=== PATIENT | female | born 2000 | race American Indian/Alaskan Native ===

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

== ENCOUNTER 2021-02-02 13:15 | Emergency (ER) | payer SELFPAY ==
[2021-02-02 14:49] VITALS: BP 126/85
== END 2021-02-02 19:00 | disposition left against medical advice (07) ==
LOC: ED 13:15
DX: N93.9 Abnormal uterine and vaginal bleeding, unspecified (principal); Z53.21 Procedure and treatment not carried out due to patient leaving prior to being seen by health care provider

== ENCOUNTER 2021-03-05 17:19 | Emergency (ER) | payer SELFPAY ==
[2021-03-05] MEDS ORDERED: KETOROLAC 30 MG/1 ML INJ IV ONE (18:00)
[2021-03-05] MEDS ORDERED: methylPREDNISolone Sod Succinate 125 MG/2 ML INJ IV ONE (18:00)
[2021-03-05] MEDS ORDERED: diphenhydrAMINE 50 MG/ML VIAL IV ONE (18:00)
[2021-03-05] MEDS ORDERED: FAMOTIDINE 20 MG/2 ML INJ IV ONE (18:00)
--- NOTE | 2021-03-05 18:01 | Emergency Department Report ---
ED General Adult HPI - General Chief complaint: Allergic Reaction Stated complaint: Allergic reaction, chest wall pain PUI?: No Time Seen by Provider: 03/05/21 17:40 Source: patient, RN notes reviewed Mode of arrival: Ambulatory Limitations: No Limitations - History of Present Illness Initial comments: The patient was evaluated in the emergency department for symptoms described in the history of present illness. He/she was evaluated in the context of the global COVID-19 pandemic, which necessitated consideration that the patient might be at risk for infection with the virus that causes COVID-19. Institutional protocols and algorithms that pertain to the evaluation of patients at risk for COVID-19 are in a state of rapid change based on information released by regulatory bodies including the CDC and federal and state organizations. These policies and algorithms were followed during the patient's care in the emergency department. Please note that these policies, procedures and recommendations changed on a rapid basis. During the history and physical examination, I am chaperoned by gisele Malcolm The patient is a 20-year-old female. She is not known to myself previously. She states that she is not . She denies chronic medical conditions. She presents to the ER today with a complaint of skin rash, skin swelling, chest wall pain, pruritus, after being bit on her head by an unknown presumed insect. The symptoms have just started within the past hour. Prior to the reported bite, the patient states that she was in her usual state of health. She denies travel, surgery, immobilization, leg pain or leg swelling, personal and family history of DVT, pulmonary embolism risk factors, and her chest wall pain is constant, throbbing, does not radiate anywhere, increases with palpation and decreases with rest. She complains of diffuse skin itching and pruritus. No dysphonia. Has taken Tylenol at home for her chest wall pain. -: Sudden Location: head, face, mouth, chest, back, abdomen, left, right, upper extremity, lower extremity Quality: other (Pruritic, and aching) Consistency: constant Improves with: none Worsens with: other (Chest wall pain increases with palpation) - Related Data Previous Rx's Medication Instructions Recorded Last Taken Type Ibuprofen 600 mg PO Q8H PRN #15 tablet 10/03/17 Unknown Rx Acyclovir 400 mg PO Q8H #30 tablet 07/19/19 Unknown Rx Acyclovir [Acyclovir Ointment] 30 gm TP Q6H #1 tube 07/19/19 Unknown Rx Ibuprofen [Motrin] 800 mg PO Q8HR PRN #24 tablet 07/19/19 Unknown Rx Acetaminophen [Non-Aspirin Extra 500 mg PO Q6HR PRN #30 tablet 03/05/21 Unknown Rx Strength] Albuterol Sulfate [Proair 90 mcg IH Q4HR PRN #2 aer.pow.ba 03/05/21 Unknown Rx Respiclick] EPINEPHrine [Epipen 2-He] 0.3 mg IM DAILY PRN #2 ml 03/05/21 Unknown Rx Famotidine [Pepcid] 20 mg PO BID #10 tablet 03/05/21 Unknown Rx Ibuprofen [Motrin] 600 mg PO Q8H PRN #30 tablet 03/05/21 Unknown Rx diphenhydrAMINE [Benadryl] 50 mg PO Q8HR PRN #20 capsule 03/05/21 Unknown Rx predniSONE [Deltasone] 40 mg PO QDAY #8 tab 03/05/21 Unknown Rx Allergies Allergy/AdvReac Type Severity Reaction Status Date / Time No Known Allergies Allergy Verified 03/05/21 18:39 ED Review of Systems ROS: Stated complaint: SEIZER BY INSECT BITE Other details as noted in HPI Constitutional: denies: fever Eyes: denies: eye discharge ENT: denies: throat pain, epistaxis, congestion Respiratory: shortness of breath. denies: cough Cardiovascular: chest pain (Chest wall pain) Gastrointestinal: denies: abdominal pain, nausea, vomiting Musculoskeletal: myalgia Skin: rash, lesions, pruritus Psychiatric: anxiety ED Past Medical Hx - Past Medical History Hx Asthma: Yes - Social History Smoking Status: Never Smoker Substance Use Type: Alcohol - Medications Home Medications: Home Medications Medication Instructions Recorded Confirmed Last Taken Type Ibuprofen 600 mg PO Q8H PRN #15 tablet 10/03/17 Unknown Rx Acyclovir 400 mg PO Q8H #30 tablet 07/19/19 Unknown Rx Acyclovir [Acyclovir Ointment] 30 gm TP Q6H #1 tube 07/19/19 Unknown Rx Ibuprofen [Motrin] 800 mg PO Q8HR PRN #24 tablet 07/19/19 Unknown Rx Acetaminophen [Non-Aspirin Extra 500 mg PO Q6HR PRN #30 tablet 03/05/21 Unknown Rx Strength] Albuterol Sulfate [Proair 90 mcg IH Q4HR PRN #2 aer.pow.ba 03/05/21 Unknown Rx Respiclick] EPINEPHrine [Epipen 2-He] 0.3 mg IM DAILY PRN #2 ml 03/05/21 Unknown Rx Famotidine [Pepcid] 20 mg PO BID #10 tablet 03/05/21 Unknown Rx Ibuprofen [Motrin] 600 mg PO Q8H PRN #30 tablet 03/05/21 Unknown Rx diphenhydrAMINE [Benadryl] 50 mg PO Q8HR PRN #20 capsule 03/05/21 Unknown Rx predniSONE [Deltasone] 40 mg PO QDAY #8 tab 03/05/21 Unknown Rx ED Physical Exam - General Limitations: No Limitations General appearance: alert, anxious, obese - Head Head exam: Present: atraumatic, normocephalic - Eye Eye exam: Present: normal appearance, EOMI - ENT ENT exam: Present: normal exam, normal orophraynx, mucous membranes moist, normal external ear exam - Neck Neck exam: Present: normal inspection, full ROM. Absent: tenderness, meningismus - Respiratory Respiratory exam: Present: normal lung sounds bilaterally, chest wall tenderness. Absent: respiratory distress, wheezes, rales, rhonchi, stridor - Cardiovascular Cardiovascular Exam: Present: regular rate, normal rhythm, normal heart sounds. Absent: bradycardia, tachycardia, irregular rhythm, systolic murmur, diastolic murmur, rubs, gallop - GI/Abdominal GI/Abdominal exam: Present: soft. Absent: distended, tenderness, guarding, rebound, rigid, pulsatile mass - Extremities Exam Extremities exam: Present: normal inspection, full ROM, other (2+ pulses noted in the bilateral upper and lower extremities. There is no palpable cord. negative Homans sign. Muscular compartments are soft. The pelvis is stable.). Absent: pedal edema, calf tenderness - Back Exam Back exam: Present: normal inspection - Neurological Exam Neurological exam: Present: alert, oriented X3, other (No facial droop. Tongue midline. Extraocular movements intact bilaterally. Facial sensation intact to light touch in V1, V2, V3 distribution bilaterally. 5 and a 5 strength in 4 extremities. Sensation intact to light touch in 4 extremities.). Absent: motor sensory deficit - Psychiatric Psychiatric exam: Present: anxious - Skin Skin exam: Present: warm, rash, urticaria ED Course Vital Signs 03/05/21 03/05/21 03/05/21 17:32 17:46 18:00 Temperature 98.3 F Pulse Rate 118 H Respiratory 56 H 30 H Rate Blood Pressure 131/77 131/77 O2 Sat by Pulse 100 100 98 Oximetry 03/05/21 03/05/21 18:16 18:30 Temperature Pulse Rate 80 81 Respiratory 20 15 Rate Blood Pressure 132/87 132/87 O2 Sat by Pulse 100 100 Oximetry ED Medical Decision Making - Lab Data Vital Signs 03/05/21 03/05/21 03/05/21 17:32 17:46 18:00 Temperature 98.3 F Pulse Rate 118 H Respiratory 56 H 30 H Rate Blood Pressure 131/77 131/77 O2 Sat by Pulse 100 100 98 Oximetry 03/05/21 03/05/21 18:16 18:30 Temperature Pulse Rate 80 81 Respiratory 20 15 Rate Blood Pressure 132/87 132/87 O2 Sat by Pulse 100 100 Oximetry - EKG Data -: EKG Interpreted by Wy EKG shows normal: sinus rhythm Rate: normal - EKG Data When compared to previous EKG there are: previous EKG unavailable 03/05/21 21:09 EKG interpreted at 18: 10 Sinus rhythm, 69 bpm, normal axis, normal intervals, high left ventricular voltage, not a STEMI. - Radiology Data Radiology results: pending, report reviewed, image reviewed [facility] [address] [place] [address] XRay Report Signed Patient: HECTOR GUERRERO MR#: [id number] : 2000 Acct:[id number] Age/Sex: 20 / F ADM Date: 03/05/21 Loc: ED Attending Dr: Ordering Physician: DEVON TONEY MD Date of Service: 03/05/21 Procedure(s): XR chest 1V ap Accession Number(s): [id number] cc: DEVON TONEY MD Fluoro Time In Minutes: CHEST 1 VIEW INDICATION: chest wall pain. COMPARISON: None. FINDINGS: Support devices: None. Heart: Normal. Lungs/Pleura: No acute pulmonary or pleural findings. IMPRESSION: 1. No acute findings. Signer Name: Joel Rain MD Signed: 03/05/2021 6:32 PM Workstation Name: [id number] Transcribed By: TOYA Dictated By: Joel Rain MD Electronically Authenticated By: Joel Rain MD Signed Date/Time: 03/05/211831 DD/ 31 - Medical Decision Making Differential diagnosis, including not limited to: Allergic reaction, insect bite, costochondritis Assessment and plan: 20-year-old female presenting with reproducible chest wall pain,/tenderness, in the context of rapid breathing, after uncertain bite from insect and/or arthropod, likely causing allergic reaction. Initially, she had urticaria, and complained of pruritus. She was given Toradol, steroids, Pepcid and Benadryl. All of this resolved her symptoms. At the moment, she is resting comfortably in stretcher, sleeping, and in no acute distress. She states that she is not . She denies DVT and pulmonary embolism risk factors, and she is low risk by Wells criteria. She denies personal/family history of DVT, PE, and coronary artery disease. This is most likely costochondritis with with resolved allergic reaction. Patient counseled that she may expect rebound symptoms. She states she has no questions at this time. She states she is ready for discharge at this time. All questions answered. Critical care attestation.: If time is entered above; I have spent that time in minutes in the direct care of this critically ill patient, excluding procedure time. ED Disposition Clinical Impression: Allergic reaction, Costochondritis Disposition: DC-01 TO HOME OR SELFCARE Is pt being admited?: No Does the pt Need Aspirin: No Condition: Stable Instructions: Costochondritis, [id number], Allergies, Adult, [id number] Additional Instructions: Take the pain medication as needed and directed. Please note that the patient should follow-up with a primary care doctor or neurology specialist within the next 2 to 3 weeks for dedicated skin testing, to ascertain what specifically the patient may be allergic to. Symptoms of allergy may rebound and recur within 72 hours of the initial insult. Therefore, please take the steroids/prednisone as directed, Benadryl as needed/directed, Pepcid as directed, breathing treatment as needed and/or directed. Use the epinephrine pen only if patient develops inability to speak and inability to breathe. Please return to the emergency room right away with new pain, worsened pain, migration of pain, projectile vomiting, change in mental status, confusion, inability tolerate liquid feeds, and ability to speak or breathe currently new, worsened or different symptoms not present on initial emergency room evaluation. Prescriptions: diphenhydrAMINE [Benadryl] 50 mg PO Q8HR PRN #20 capsule PRN Reason: Allergic Reaction predniSONE [Deltasone] 40 mg PO QDAY #8 tab EPINEPHrine [Epipen 2-He] 0.3 mg IM DAILY PRN #2 ml PRN Reason: Allergic Reaction Ibuprofen [Motrin] 600 mg PO Q8H PRN #30 tablet PRN Reason: Pain Acetaminophen [Non-Aspirin Extra Strength] 500 mg PO Q6HR PRN #30 tablet PRN Reason: Pain , Severe (7-10) Famotidine [Pepcid] 20 mg PO BID #10 tablet Albuterol Sulfate [Proair Respiclick] 90 mcg IH Q4HR PRN #2 aer.pow.ba PRN Reason: Wheezing Referrals: PRIMARY CARE, [Primary Care Provider] - 3-5 Days [facility] [Provider Group] - 3-5 Days Forms: Work/School Release Form(ED)
--- NOTE | 2021-03-05 18:37 | XRay Report ---
CHEST 1 VIEW INDICATION: chest wall pain. COMPARISON: None. FINDINGS: Support devices: None. Heart: Normal. Lungs/Pleura: No acute pulmonary or pleural findings. IMPRESSION: 1. No acute findings. Signer Name: Joel Rain MD Signed: 03/05/2021 6:32 PM Workstation Name: [id number]
[2021-03-05 21:39] VITALS: BP 116/70
--- NOTE | 2021-03-06 10:39 | Electrocardiograph Report ---
[facility] Test Date: 2021-03-05 Test Time: 18:07:49 Pat Name: HECTOR GUERRERO Department: Room: Gender: F Activity Manager: NURSE : 2000 Requested By: DEVON TONEY Order Number: [id number] Reading MD: Eldon Hawk Measurements Intervals [place] Rate: 69 P: 57 KS: 138 QRS: 77 QRSD: 69 T: 70 QT: 371 QTc: 396 Interpretive Statements Sinus rhythm No previous ECG available for comparison Electronically Signed On 03-06-2021 10:39:24 EDT by Eldon Hawk
== END 2021-03-05 22:46 | disposition home or self-care (01) ==
LOC: ED 17:19
DX: T78.40XA Allergy, unspecified, initial encounter (principal); M94.0 Chondrocostal junction syndrome [Tietze]; X58.XXXA Exposure to other specified factors, initial encounter
CPT/HCPCS: 71045; 93005; 96374; 96375; 99283; J1200; J1885; J2930

== ENCOUNTER 2021-09-16 03:33 | Emergency (ER) | payer SELFPAY ==
[2021-09-16] MEDS ORDERED: LACTATED RINGERS 1,000 ML IV ONE (03:35)
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
[2021-09-16 04:24] LABS: Hematocrit 43.6 % (30.3-42.9); Mean Corpuscular HGB Conc 32 % (30-34); Mean Corpuscular Volume 83 fl (79-97); Platelet Count 354 K/mm3 (140-440); Red Blood Count 5.27 M/mm3 (3.65-5.03); Red Cell Distribution Width 14.7 % (13.2-15.2)
[2021-09-16 04:39] LABS: BUN/Creatinine Ratio 9; Blood Urea Nitrogen 11 mg/dL (7-17); Calcium 9.6 mg/dL (8.4-10.2); Hemolysis Index 2
[2021-09-16 05:55] VITALS: BP 130/72
== END 2021-09-16 05:53 | disposition home or self-care (01) ==
LOC: ED 03:33
DX: R40.0 Somnolence (principal); R25.1 Tremor, unspecified; J45.909 Unspecified asthma, uncomplicated; Z72.89 Other problems related to lifestyle; Z79.899 Other long term (current) drug therapy
CPT/HCPCS: 36415; 80048; 83735; 84703; 85027; 96360; 99284; J7120

== ENCOUNTER 2021-09-19 17:22 | Emergency (ER) | payer SELFPAY ==
[2021-09-19 21:30] LABS: Bilirubin,Urine NEG (Negative); Blood,Urine SM (Negative); Color,Urine Amber (Yellow); WBC,Urine < 1.0 /HPF (0.0-6.0)
[2021-09-19 21:37] LABS: Basophils % (Auto) 0.7 % (0.0-1.8); Eosinophils % (Auto) 0.4 % (0.0-4.3); Hematocrit 39.1 % (30.3-42.9); Hemoglobin 12.7 gm/dl (10.1-14.3); Lymphocytes # (Auto) 2.6 K/mm3 (1.2-5.4); Lymphocytes % (Auto) 39.2 % (13.4-35.0); Mean Corpuscular HGB Conc 32 % (30-34); Mean Corpuscular Volume 82 fl (79-97); Monocytes # (Auto) 0.5 K/mm3 (0.0-0.8); Platelet Count 330 K/mm3 (140-440); Red Blood Count 4.78 M/mm3 (3.65-5.03); Red Cell Distribution Width 14.5 % (13.2-15.2)
[2021-09-19 21:55] LABS: Alanine Aminotransferase 9 units/L (7-56); Albumin 4.3 g/dL (3.9-5); BUN/Creatinine Ratio 9; Blood Urea Nitrogen 6 mg/dL (7-17); Calcium 9.1 mg/dL (8.4-10.2); Hemolysis Index 26
[2021-09-20 03:51] VITALS: BP 123/81
== END 2021-09-20 04:00 | disposition home or self-care (01) ==
LOC: ED 17:22
DX: R11.2 Nausea with vomiting, unspecified (principal); B37.3 Candidiasis of vulva and vagina; R10.9 Unspecified abdominal pain
CPT/HCPCS: 36415; 74177; 80053; 81001; 83690; 84703; 85025; 87210; 87591; 96361; 96374; 96375; 99284; J2405; J7030; Q9967; Q0162

== ENCOUNTER 2021-12-31 14:45 | Emergency (ER) | payer SELFPAY ==
[2021-12-31 15:32] VITALS: BP 124/82
[2021-12-31 16:33] LABS: Basophils % (Auto) 0.4 % (0.0-1.8); Eosinophils % (Auto) 0.4 % (0.0-4.3); Hematocrit 43.9 % (30.3-42.9); Hemoglobin 14.9 gm/dl (10.1-14.3); Lymphocytes # (Auto) 2.5 K/mm3 (1.2-5.4); Lymphocytes % (Auto) 31.4 % (13.4-35.0); Mean Corpuscular HGB Conc 34 % (30-34); Mean Corpuscular Volume 81 fl (79-97); Monocytes # (Auto) 0.5 K/mm3 (0.0-0.8); Monocytes % (Auto) 6.6 % (0.0-7.3); Platelet Count 365 K/mm3 (140-440); Red Cell Distribution Width 14.2 % (13.2-15.2)
[2021-12-31 16:48] LABS: Alanine Aminotransferase 18 units/L (7-56); Albumin 4.8 g/dL (3.9-5); Blood Urea Nitrogen 13 mg/dL (7-17); Calcium 10.1 mg/dL (8.4-10.2); Hemolysis Index 17
[2021-12-31 17:12] LABS: BUN/Creatinine Ratio 22
[2021-12-31] MEDS ORDERED: diphenhydrAMINE 50 MG/ML VIAL IV ONE (22:52)
[2021-12-31] MEDS ORDERED: METOCLOPRAMIDE 10 MG/2 ML INJ IV ONE (22:52)
[2021-12-31] MEDS ORDERED: FAMOTIDINE 20 MG/2 ML INJ IV ONE (22:52)
[2021-12-31] MEDS ORDERED: SODIUM CHLORIDE 0.9% 1000 ML 1,000 ML IV ONE (22:53)
[2021-12-31] MEDS ORDERED: MORPHINE 4 MG/1 ML INJ IV ONE (23:02)
[2022-01-01 01:09] LABS: Bacteria,Urine 4+ /HPF (Negative); Bilirubin,Urine NEG (Negative); Blood,Urine LG (Negative); Color,Urine Yellow (Yellow); Mucus,Urine 3+ /HPF; Protein,Urine <15 mg/dL mg/dL (Negative); Sperm,Urine 1+ /HPF (NP); Urobilinogen,Urine < 2.0 mg/dL (<2.0)
[2022-01-01 01:14] LABS: Amphetamine Screen,Urine PRESUMPTIVE POSITIVE; Benzodiazepines Screen,Urine PRESUMPTIVE NEGATIVE; Cannabinoid Screen,Urine PRESUMPTIVE POSITIVE; Cocaine Screen,Urine PRESUMPTIVE NEGATIVE; Methadone Screen,Urine PRESUMPTIVE NEGATIVE; Opiate Screen,Urine PRESUMPTIVE NEGATIVE
--- NOTE | 2022-01-01 02:06 | Emergency Department Report ---
ED N/V/D HPI - General Chief complaint: Abdominal Pain Stated complaint: VOMITING Source: patient Mode of arrival: Ambulatory Limitations: No Limitations - History of Present Illness Initial comments: Patient is a 21-year-old -Turkmen female with a history of seizures and asthma who presents to the ED with complaint of acute onset persistent nausea and vomiting, abdominal pain in the epigastric area, and generalized weakness and lack of appetite for the last 2 days. Patient states that she has not been able to keep anything down because of intractable nausea and vomiting and epigastric pain. Patient states that no one else at home is had similar symptoms. Patient however admits to smoking cannabis routinely. Patient denies dizziness, syncope, chest pain or shortness of breath, fever and chills, dysuria, urinary frequency and urgency, diarrhea, low back pain, headache, sore throat, nasal and sinus congestion. MD complaint: nausea, vomiting, abdominal pain (epigastric pain) -: days(s) (4) Description of Vomiting: food contents, watery, bilious Associated Abdominal Pain: Yes (epigastric pain) Location: epigastric Radiation: none Severity: severe Pain Scale: 7 Quality: cramping, sharp Consistency: constant Improves with: none Worsens with: eating, vomiting Context: possible food poisoning Associated Symptoms: denies other symptoms, myalgias, cough, headaches, loss of appetite, malaise, nausea/vomiting. denies: chest pain, diaphoresis, fever/chills, rash, dysuria, shortness of breath, syncope, weakness - Related Data Previous Rx's Medication Instructions Recorded Last Taken Type Ibuprofen 600 mg PO Q8H PRN #15 tablet 10/03/17 Unknown Rx Acyclovir 400 mg PO Q8H #30 tablet 07/19/19 Unknown Rx Acyclovir [Acyclovir Ointment] 30 gm TP Q6H #1 tube 07/19/19 Unknown Rx Ibuprofen [Motrin] 800 mg PO Q8HR PRN #24 tablet 07/19/19 Unknown Rx Acetaminophen [Non-Aspirin Extra 500 mg PO Q6HR PRN #30 tablet 03/05/21 Unknown Rx Strength] Albuterol Sulfate [Proair 90 mcg IH Q4HR PRN #2 aer.pow.ba 03/05/21 Unknown Rx Respiclick] EPINEPHrine [Epipen 2-He] 0.3 mg IM DAILY PRN #2 ml 03/05/21 Unknown Rx Famotidine [Pepcid] 20 mg PO BID #10 tablet 03/05/21 Unknown Rx Ibuprofen [Motrin] 600 mg PO Q8H PRN #30 tablet 03/05/21 Unknown Rx diphenhydrAMINE [Benadryl] 50 mg PO Q8HR PRN #20 capsule 03/05/21 Unknown Rx predniSONE [Deltasone] 40 mg PO QDAY #8 tab 03/05/21 Unknown Rx Fluconazole [Diflucan TAB] 200 mg PO QDAY #1 tablet 09/20/21 Unknown Rx Promethazine [Phenergan] 25 mg PO Q8HR PRN #20 tab 09/20/21 Unknown Rx Promethazine [Phenergan] 25 mg AR Q6HR PRN #5 supp.rect 09/20/21 Unknown Rx traMADoL [Ultram] 50 mg PO Q6HR PRN #10 tablet 09/20/21 Unknown Rx Dicyclomine [Bentyl] 20 mg PO Q6H #30 tablet 01/01/22 Unknown Rx Famotidine [Pepcid] 20 mg PO BID #60 tablet 01/01/22 Unknown Rx Ondansetron [Zofran Odt] 4 mg PO Q8HR PRN #20 tab.rapdis 01/01/22 Unknown Rx cephALEXin [Keflex] 500 mg PO Q8HR #30 cap 01/01/22 Unknown Rx Allergies Allergy/AdvReac Type Severity Reaction Status Date / Time No Known Allergies Allergy Verified 03/05/21 18:39 ED Review of Systems ROS: Stated complaint: VOMITING Other details as noted in HPI Constitutional: malaise. denies: chills, fever Eyes: denies: eye pain, eye discharge, vision change ENT: denies: ear pain, throat pain Respiratory: denies: cough, shortness of breath, wheezing Cardiovascular: denies: chest pain, palpitations Endocrine: no symptoms reported Gastrointestinal: abdominal pain, nausea, vomiting. denies: diarrhea Genitourinary: denies: urgency, dysuria, frequency, discharge Musculoskeletal: denies: back pain, joint swelling, arthralgia Skin: denies: rash, lesions Neurological: denies: headache, weakness, paresthesias Psychiatric: denies: anxiety, depression Hematological/Lymphatic: denies: easy bleeding, easy bruising ED Past Medical Hx - Past Medical History Hx Seizures: Yes Hx Asthma: Yes Additional medical history: Seizure per EMS - Surgical History Past Surgical History?: No - Social History Smoking Status: Never Smoker Substance Use Type: Marijuana - Medications Home Medications: Home Medications Medication Instructions Recorded Confirmed Last Taken Type Ibuprofen 600 mg PO Q8H PRN #15 tablet 10/03/17 Unknown Rx Acyclovir 400 mg PO Q8H #30 tablet 07/19/19 Unknown Rx Acyclovir [Acyclovir Ointment] 30 gm TP Q6H #1 tube 07/19/19 Unknown Rx Ibuprofen [Motrin] 800 mg PO Q8HR PRN #24 tablet 07/19/19 Unknown Rx Acetaminophen [Non-Aspirin Extra 500 mg PO Q6HR PRN #30 tablet 03/05/21 Unknown Rx Strength] Albuterol Sulfate [Proair 90 mcg IH Q4HR PRN #2 aer.pow.ba 03/05/21 Unknown Rx Respiclick] EPINEPHrine [Epipen 2-He] 0.3 mg IM DAILY PRN #2 ml 03/05/21 Unknown Rx Famotidine [Pepcid] 20 mg PO BID #10 tablet 03/05/21 Unknown Rx Ibuprofen [Motrin] 600 mg PO Q8H PRN #30 tablet 03/05/21 Unknown Rx diphenhydrAMINE [Benadryl] 50 mg PO Q8HR PRN #20 capsule 03/05/21 Unknown Rx predniSONE [Deltasone] 40 mg PO QDAY #8 tab 03/05/21 Unknown Rx Fluconazole [Diflucan TAB] 200 mg PO QDAY #1 tablet 09/20/21 Unknown Rx Promethazine [Phenergan] 25 mg PO Q8HR PRN #20 tab 09/20/21 Unknown Rx Promethazine [Phenergan] 25 mg AR Q6HR PRN #5 supp.rect 09/20/21 Unknown Rx traMADoL [Ultram] 50 mg PO Q6HR PRN #10 tablet 09/20/21 Unknown Rx Dicyclomine [Bentyl] 20 mg PO Q6H #30 tablet 01/01/22 Unknown Rx Famotidine [Pepcid] 20 mg PO BID #60 tablet 01/01/22 Unknown Rx Ondansetron [Zofran Odt] 4 mg PO Q8HR PRN #20 tab.rapdis 01/01/22 Unknown Rx cephALEXin [Keflex] 500 mg PO Q8HR #30 cap 01/01/22 Unknown Rx ED Physical Exam - General Limitations: No Limitations General appearance: alert, in no apparent distress - Head Head exam: Present: atraumatic, normocephalic, normal inspection - Eye Eye exam: Present: normal appearance, PERRL, EOMI Pupils: Present: normal accommodation - ENT ENT exam: Present: normal exam, normal orophraynx, mucous membranes moist, TM's normal bilaterally, normal external ear exam - Neck Neck exam: Present: normal inspection, full ROM - Respiratory Respiratory exam: Present: normal lung sounds bilaterally. Absent: respiratory distress, wheezes, rales, stridor, accessory muscle use, decreased breath sounds, prolonged expiratory - Cardiovascular Cardiovascular Exam: Present: normal rhythm, tachycardia, normal heart sounds. Absent: systolic murmur, diastolic murmur, rubs, gallop - GI/Abdominal GI/Abdominal exam: Present: soft, tenderness (epigastric), normal bowel sounds. Absent: guarding, rigid, hyperactive bowel sounds, hypoactive bowel sounds - Extremities Exam Extremities exam: Present: normal inspection, full ROM, normal capillary refill. Absent: tenderness - Back Exam Back exam: Present: normal inspection, full ROM. Absent: muscle spasm, paraspinal tenderness, vertebral tenderness - Neurological Exam Neurological exam: Present: alert, oriented X3, CN II-XII intact, normal gait, reflexes normal - Psychiatric Psychiatric exam: Present: normal affect, normal mood - Skin Skin exam: Present: warm, dry, intact, normal color. Absent: rash ED Course Vital Signs 12/31/21 15:27 Temperature 98.9 F Pulse Rate 105 H Respiratory 18 Rate Blood Pressure 124/82 O2 Sat by Pulse 98 Oximetry ED Medical Decision Making - Lab Data Result diagrams: 12/31/21 15:55 12/31/21 15:55 - Medical Decision Making This is a 21-year-old -Turkmen female with a history of seizures and asthma who presents to the ED with complaint of acute onset persistent nausea and vomiting, abdominal pain in the epigastric area, and generalized weakness and lack of appetite for the last 2 days. Patient states that she has not been able to keep anything down because of intractable nausea and vomiting and epig astric pain. Patient states that no one else at home is had similar symptoms. Patient however admits to smoking cannabis routinely. In the ED, patient is alert and oriented x3 and is not in any distress. Patient was treated for nausea and vomiting in the ED, also treated with antacids and also given normal saline 1 L IV bolus x1. Lab test results were reviewed and showed acute urinary tract infection in urinalysis. The rest of the lab test results were nonactionable. On reevaluation, patient passed oral fluid challenge in the ED, patient felt better, pain was well controlled and patient is hemodynamically stable. Patient will discharge home on antiemetics, antacids and antispasmodics as well as antibiotics for UTI. Patient was advised to maintain a clear liquid diet for 12 to 24 hours, and to take medications and follow-up with her primary care physician in 7 to 10 days for reevaluation or return to the ED immediately if symptoms get worse. - Differential Diagnosis Viral gastroenteritis; UTI; GERD; polysubstance abuse Critical care attestation.: If time is entered above; I have spent that time in minutes in the direct care of this critically ill patient, excluding procedure time. ED Disposition Clinical Impression: Nausea and vomiting in adult patient, Viral gastroenteritis, Polysubstance abuse, Acute urinary tract infection GERD (gastroesophageal reflux disease) Qualifiers: Esophagitis presence: esophagitis presence not specified Qualified Code(s): K21.9 - Gastro-esophageal reflux disease without esophagitis Disposition: 01 HOME / SELF CARE / HOMELESS Is pt being admited?: No Does the pt Need Aspirin: No Condition: Stable Instructions: Abdominal Pain (ED), Viral Gastroenteritis, Adult, [id number], Heartburn, [id number], Nausea and Vomiting, Adult, [id number], Urinary Tract Infection, Adult, [id number], Gastroesophageal Reflux Disease, Adult, [id number], Substance Use Disorder and Mental Illness Additional Instructions: Maintain a clear liquid diet for 12 to 24 hours, drink plenty of fluids, take medication as advised and follow-up with your primary care physician in 5 to 7 days for reevaluation. Return to the ED immediately if symptoms get worse. Prescriptions: Dicyclomine [Bentyl] 20 mg PO Q6H #30 tablet cephALEXin [Keflex] 500 mg PO Q8HR #30 cap Famotidine [Pepcid] 20 mg PO BID #60 tablet Ondansetron [Zofran Odt] 4 mg PO Q8HR PRN #20 tab.rapdis PRN Reason: Nausea Referrals: [facility] [Provider Group] - 3-5 Days Time of Disposition: 02:06 Print Language: JAPANESE
== END 2022-01-01 02:20 | disposition home or self-care (01) ==
LOC: ED 14:45
DX: N39.0 Urinary tract infection, site not specified (principal); K21.9 Gastro-esophageal reflux disease without esophagitis; A08.4 Viral intestinal infection, unspecified; R11.2 Nausea with vomiting, unspecified; F19.10 Other psychoactive substance abuse, uncomplicated; R56.9 Unspecified convulsions; J45.909 Unspecified asthma, uncomplicated; Z79.899 Other long term (current) drug therapy
CPT/HCPCS: 36415; 80053; 80307; 81001; 83690; 84703; 85025; 87086; 96361; 96374; 96375; 99283; J1200; J2270; J2765; J3490; J7030

== ENCOUNTER 2022-04-03 05:49 | Emergency (ER) | payer SELFPAY ==
[2022-04-03 05:57] VITALS: BP 140/80
[2022-04-03 09:09] LABS: HCG Qualitative,Urine Negative (Negative)
[2022-04-03 09:11] LABS: Bacteria,Urine 2+ /HPF (Negative); Mucus,Urine 3+ /HPF
[2022-04-03 09:18] LABS: Color,Urine Dark Yellow (Yellow)
[2022-04-03] MEDS ORDERED: LIDOCAINE-MPF (1%) 10 MG/1 ML VIAL 5 ML INFILTRATI ONE (11:10)
--- NOTE | 2022-04-03 12:25 | Emergency Department Report ---
ED Abdominal Pain HPI - General Chief Complaint: Nausea/Vomiting/Diarrhea Stated Complaint: NAUSEA, ILLNESS PUI?: No Time Seen by Provider: 04/03/22 08:35 Source: patient, EMS Mode of arrival: Wheelchair Limitations: No Limitations - Related Data Previous Rx's Medication Instructions Recorded Last Taken Type Ibuprofen 600 mg PO Q8H PRN #15 tablet 10/03/17 Unknown Rx Acyclovir 400 mg PO Q8H #30 tablet 07/19/19 Unknown Rx Acyclovir [Acyclovir Ointment] 30 gm TP Q6H #1 tube 07/19/19 Unknown Rx Ibuprofen [Motrin] 800 mg PO Q8HR PRN #24 tablet 07/19/19 Unknown Rx Acetaminophen [Non-Aspirin Extra 500 mg PO Q6HR PRN #30 tablet 03/05/21 Unknown Rx Strength] Albuterol Sulfate [Proair 90 mcg IH Q4HR PRN #2 aer.pow.ba 03/05/21 Unknown Rx Respiclick] EPINEPHrine [Epipen 2-He] 0.3 mg IM DAILY PRN #2 ml 03/05/21 Unknown Rx Famotidine [Pepcid] 20 mg PO BID #10 tablet 03/05/21 Unknown Rx Ibuprofen [Motrin] 600 mg PO Q8H PRN #30 tablet 03/05/21 Unknown Rx diphenhydrAMINE [Benadryl] 50 mg PO Q8HR PRN #20 capsule 03/05/21 Unknown Rx predniSONE [Deltasone] 40 mg PO QDAY #8 tab 03/05/21 Unknown Rx Fluconazole [Diflucan TAB] 200 mg PO QDAY #1 tablet 09/20/21 Unknown Rx Promethazine [Phenergan] 25 mg PO Q8HR PRN #20 tab 09/20/21 Unknown Rx Promethazine [Phenergan] 25 mg NC Q6HR PRN #5 supp.rect 09/20/21 Unknown Rx traMADoL [Ultram] 50 mg PO Q6HR PRN #10 tablet 09/20/21 Unknown Rx Dicyclomine [Bentyl] 20 mg PO Q6H #30 tablet 01/01/22 Unknown Rx Famotidine [Pepcid] 20 mg PO BID #60 tablet 01/01/22 Unknown Rx Ondansetron [Zofran Odt] 4 mg PO Q8HR PRN #20 tab.rapdis 01/01/22 Unknown Rx cephALEXin [Keflex] 500 mg PO Q8HR #30 cap 01/01/22 Unknown Rx Sulfamethoxazole/Trimethoprim 1 each PO BID #10 tablet 04/03/22 Unknown Rx [Bactrim DS TAB] Allergies Allergy/AdvReac Type Severity Reaction Status Date / Time No Known Allergies Allergy Verified 03/05/21 18:39 ED Review of Systems ROS: Stated complaint: NAUSEA, ILLNESS Other details as noted in HPI Comment: All other systems reviewed and negative ED Past Medical Hx - Past Medical History Previous Medical History?: Yes Hx Seizures: Yes Hx Asthma: Yes Additional medical history: Seizure per EMS - Surgical History Past Surgical History?: No - Family History Family history: no significant - Social History Smoking Status: Never Smoker Substance Use Type: Marijuana - Medications Home Medications: Home Medications Medication Instructions Recorded Confirmed Last Taken Type Ibuprofen 600 mg PO Q8H PRN #15 tablet 10/03/17 Unknown Rx Acyclovir 400 mg PO Q8H #30 tablet 07/19/19 Unknown Rx Acyclovir [Acyclovir Ointment] 30 gm TP Q6H #1 tube 07/19/19 Unknown Rx Ibuprofen [Motrin] 800 mg PO Q8HR PRN #24 tablet 07/19/19 Unknown Rx Acetaminophen [Non-Aspirin Extra 500 mg PO Q6HR PRN #30 tablet 03/05/21 Unknown Rx Strength] Albuterol Sulfate [Proair 90 mcg IH Q4HR PRN #2 aer.pow.ba 03/05/21 Unknown Rx Respiclick] EPINEPHrine [Epipen 2-He] 0.3 mg IM DAILY PRN #2 ml 03/05/21 Unknown Rx Famotidine [Pepcid] 20 mg PO BID #10 tablet 03/05/21 Unknown Rx Ibuprofen [Motrin] 600 mg PO Q8H PRN #30 tablet 03/05/21 Unknown Rx diphenhydrAMINE [Benadryl] 50 mg PO Q8HR PRN #20 capsule 03/05/21 Unknown Rx predniSONE [Deltasone] 40 mg PO QDAY #8 tab 03/05/21 Unknown Rx Fluconazole [Diflucan TAB] 200 mg PO QDAY #1 tablet 09/20/21 Unknown Rx Promethazine [Phenergan] 25 mg PO Q8HR PRN #20 tab 09/20/21 Unknown Rx Promethazine [Phenergan] 25 mg NC Q6HR PRN #5 supp.rect 09/20/21 Unknown Rx traMADoL [Ultram] 50 mg PO Q6HR PRN #10 tablet 09/20/21 Unknown Rx Dicyclomine [Bentyl] 20 mg PO Q6H #30 tablet 01/01/22 Unknown Rx Famotidine [Pepcid] 20 mg PO BID #60 tablet 01/01/22 Unknown Rx Ondansetron [Zofran Odt] 4 mg PO Q8HR PRN #20 tab.rapdis 01/01/22 Unknown Rx cephALEXin [Keflex] 500 mg PO Q8HR #30 cap 01/01/22 Unknown Rx Sulfamethoxazole/Trimethoprim 1 each PO BID #10 tablet 04/03/22 Unknown Rx [Bactrim DS TAB] ED Physical Exam - General Limitations: No Limitations General appearance: alert, in no apparent distress - Head Head exam: Present: atraumatic, normocephalic - Eye Eye exam: Present: normal appearance - ENT ENT exam: Present: mucous membranes moist - Neck Neck exam: Present: normal inspection - Respiratory Respiratory exam: Present: normal lung sounds bilaterally. Absent: respiratory distress - Cardiovascular Cardiovascular Exam: Present: regular rate, normal rhythm. Absent: systolic murmur, diastolic murmur, rubs, gallop - GI/Abdominal GI/Abdominal exam: Present: soft, normal bowel sounds - Extremities Exam Extremities exam: Present: normal inspection - Back Exam Back exam: Present: normal inspection - Neurological Exam Neurological exam: Present: alert, oriented X3 - Psychiatric Psychiatric exam: Present: normal affect, normal mood - Skin Skin exam: Present: warm, dry, intact, normal color. Absent: rash ED Course Vital Signs 04/03/22 05:55 Temperature 97.4 F L Pulse Rate 66 Respiratory 16 Rate Blood Pressure 140/80 [Right] O2 Sat by Pulse 98 Oximetry ED Medical Decision Making - Medical Decision Making Labs 04/03/22 08:59 Urine Color Dark yellow Urine Turbidity Hazy Specific Royal (Man) 1.020 Ur Protein (Man) 1+ Ur Ketones (Man) 4+ Ur Nitrite (Man) Positive Ur Reducing Substances Not Reportable Urine Bilirubin (Man) Negative Urine Ictotest Not Reportable Leukocyte Esterase (Man) Trace Urine WBC (Auto) 14.0 H Urine RBC (Auto) 76.0 U Epithel Cells (Auto) 1.0 Urine Bacteria (Auto) 2+ Urine RBC (Manual) 2+ Urine Mucus 3+ Urine HCG, Qual Negative Vital Signs 04/03/22 05:55 Temperature 97.4 F L Pulse Rate 66 Respiratory 16 Rate Blood Pressure 140/80 [Right] O2 Sat by Pulse 98 Oximetry Critical care attestation.: If time is entered above; I have spent that time in minutes in the direct care of this critically ill patient, excluding procedure time. ED Disposition Clinical Impression: UTI (urinary tract infection) Disposition: HOME / SELF CARE / HOMELESS Is pt being admited?: No Does the pt Need Aspirin: No Condition: Stable Instructions: Urinary Tract Infection, Adult, [id number] Additional Instructions: MEDS ORDERED TODAY AFTER MEDS FOLLOW UP WITH PCP TO BE SURE YOU ARE GETTING BETTER REFERRAL BELOW Referrals: CINDY SAUL MD [Primary Care Provider] - 3-5 Days Forms: Work/School Release Form(ED) Time of Disposition: 12:32
== END 2022-04-03 12:38 | disposition home or self-care (01) ==
LOC: ED 05:49
DX: N39.0 Urinary tract infection, site not specified (principal); J45.909 Unspecified asthma, uncomplicated; F12.90 Cannabis use, unspecified, uncomplicated; Z98.890 Other specified postprocedural states
CPT/HCPCS: 81001; 81025; 87086; 96372; 99283; J0696; J3490; 87076; 87186

== ENCOUNTER 2022-04-17 08:20 | Emergency (ER) | payer SELFPAY ==
[2022-04-17 08:38] VITALS: BP 119/84
== END 2022-04-17 11:05 | disposition left against medical advice (07) ==
LOC: ED 08:20
DX: R11.10 Vomiting, unspecified (principal); Z53.21 Procedure and treatment not carried out due to patient leaving prior to being seen by health care provider